=== PATIENT | female | born 1985 | race Caucasian/White ===

== ENCOUNTER 2017-07-24 01:49 | Emergency (ER) | payer OTHER ==
[~2017-07-24] VITALS: Ht 180.3 cm; Wt 93.9 kg
[~2017-07-24 01:49] MED LIST: IPRAT-ALBUT 0.5-3 ML INH; NEXIUM20 MG PO; ZYRTEC10 M3 PO
[2017-07-24] MEDS ORDERED: SINGULAIR10 MG PO (02:03)
[2017-07-24] MEDS ORDERED: CIPRO500 MG PO (02:04)
[2017-07-24] MEDS ORDERED: OMEPRAZOLE20 MG PO (02:04)
[2017-07-24] MEDS ORDERED: METOPROLOL TART25 MG PO (05:24)
--- NOTE | 2017-07-25 07:17 | EKG ---
[facility] [address] [facility] [place] [address] Signed Sinus tachycardia Nonspecific ST abnormality Abnormal ECG No previous ECGs available Confirmed by ANABEL DOWD MD ([id number] on 07/25/2017 7:16:56 AM Electronically Signed By: ANABEL DOWD MD 07/25/17 0717 PATIENT NAME: MARISA MANNING Electrocardiogram DATE OF : 83 PHYSICIAN: ANABEL DOWD MD REPORT #: [id number] REPORT IS CONFIDENTIAL AND NOT TO BE RELEASED WITHOUT AUTHORIZATION
== END 2017-07-24 05:41 | disposition home or self-care (01) ==
LOC: ED 01:49
DX: R00.0 Tachycardia, unspecified (principal); J45.909 Unspecified asthma, uncomplicated; Z88.2 Allergy status to sulfonamides; Z88.8 Allergy status to other drugs, medicaments and biological substances; Z79.899 Other long term (current) drug therapy; Z79.2 Long term (current) use of antibiotics
CPT/HCPCS: 80053; 84443; 84484; 84703; 85025; 85379; 93005; 93010; 96374; 96375; 99284; J2060; J7030

== ENCOUNTER 2018-01-25 12:59 | Emergency (ER) | payer OTHER ==
[~2018-01-25] VITALS: Ht 180.3 cm; Wt 93.9 kg
[~2018-01-25 12:59] MED LIST changes: +CIPRO500 MG PO; +METOPROLOL TART25 MG PO; +OMEPRAZOLE20 MG PO; +SINGULAIR10 MG PO
== END 2018-01-25 13:41 | disposition home or self-care (01) ==
LOC: ED 12:59
DX: H69.90 Unspecified Eustachian tube disorder, unspecified ear (principal); H92.03 Otalgia, bilateral; J45.909 Unspecified asthma, uncomplicated; Z88.2 Allergy status to sulfonamides; Z88.8 Allergy status to other drugs, medicaments and biological substances; Z79.899 Other long term (current) drug therapy
CPT/HCPCS: 99282

== ENCOUNTER 2019-03-21 10:30 | Emergency (ER) | payer OTHER ==
[~2019-03-21] VITALS: Ht 180.3 cm; Wt 99.8 kg
[~2019-03-21 10:30] MED LIST changes: +PROMETHAZINE HC25 M1
[2019-03-21] MEDS ORDERED: PHENTERMINE HCL15 MG PO (10:44)
[2019-03-21] MEDS ORDERED: ONDANSETRON ODT8 MG PO (13:29)
== END 2019-03-21 13:52 | disposition home or self-care (01) ==
LOC: ED 10:30
DX: K29.00 Acute gastritis without bleeding (principal); J45.909 Unspecified asthma, uncomplicated; Z88.1 Allergy status to other antibiotic agents; Z88.2 Allergy status to sulfonamides; Z79.899 Other long term (current) drug therapy
CPT/HCPCS: 80053; 83690; 85025; 96361; 96374; 99284-25; J2405; J7030

== ENCOUNTER 2019-08-07 19:06 | Emergency (ER) | payer BC, OTHER ==
[~2019-08-07] VITALS: Ht 180.3 cm; Wt 93.0 kg
[~2019-08-07 19:06] MED LIST changes: +LEVAQUIN500 MG PO; +MONTELUKAST SOD10 MG PO; +ONDANSETRON ODT8 MG PO; +PHENTERMINE HCL15 MG PO; +PREDNISONE20 MG PO; +VENTOLIN HFA18 GM INH
[2019-08-07] MEDS ORDERED: CIPRO500 MG PO (20:15)
== END 2019-08-07 20:30 | disposition home or self-care (01) ==
LOC: ED 19:06
DX: N39.0 Urinary tract infection, site not specified (principal); J45.909 Unspecified asthma, uncomplicated; Z88.1 Allergy status to other antibiotic agents; Z88.2 Allergy status to sulfonamides; Z79.899 Other long term (current) drug therapy
CPT/HCPCS: 81001; 84703; 99283

== ENCOUNTER 2019-08-16 13:51 | Emergency (ER) | payer BC, OTHER ==
[~2019-08-16] VITALS: Ht 180.3 cm; Wt 105.8 kg
--- OUTSIDE RECORDS SUMMARY | 2019-08-16 13:54 | XMS ---
PreManage Notification: MARISA MANNING Security Contract Coordinator Events No recent Security Events currently on file CRITERIA MET - [facility] - 2 Visits in 30 Days CARE PROVIDERS Olivia Ireland PA-C Treatment Current PHONE: Unknown Timur Arellano Primary Care Current PHONE: [phone] Krystal has no Care Guidelines for this patient. Luis VISIT COUNT (12 MO.) [address] [place] [address] TOTAL 5 NOTE: Visits indicate total known visits. ED/UCC VISIT TRACKING (12 MO.) 08/16/2019 13:53 [facility] TYPE: Emergency COMPLAINT: - BLACKED OUTCALOS,RT FACIAL NUMBNESS 08/07/2019 19:06 [facility] TYPE: Emergency COMPLAINT: - URINE PROBLEM DIAGNOSES: - Dysuria - Allergy status to other antibiotic agents status - Unspecified asthma, uncomplicated - Allergy status to sulfonamides status - Other longterm (current) drug therapy - Urinary tract infection, site not specified 07/04/2019 21:51 [facility] TYPE: Emergency COMPLAINT: - SOB, TIGHT CHEST DIAGNOSES: - Allergy status to other antibiotic agents status - Unspecified asthma, uncomplicated - Allergy status to sulfonamides status - Shortness of breath - Other buttermaker helper (current) drug therapy 03/21/2019 10:31 [facility] TYPE: Emergency COMPLAINT: - VOMITING. DIAGNOSES: - Vomiting, unspecified - Other longterm (current) drug therapy - Allergy status to other antibiotic agents status - Unspecified asthma, uncomplicated - Allergy status to sulfonamides status - Acute gastritis without bleeding 12/18/2018 00:00 [facility] TYPE: Emergency COMPLAINT: - EAR PAIN AND SWELLING INPATIENT VISIT TRACKING (12 MO.) No inpatient visits to display in this time frame [email or web address]
[2019-08-16] MEDS ORDERED: K-TAB ER20 MEQ PO (15:53)
--- NOTE | 2019-08-16 20:00 | EKG ---
[facility] [address] [facility] [place] [address] Signed Normal sinus rhythm Normal ECG When compared with ECG of 18-MAY-2018 00:37, No significant change was found Confirmed by FELICITAS GRANADOS MD ([id number]) on 08/16/2019 8:00:35 PM Electronically Signed By: FELICITAS GRANADOS MD 08/16/191999 PATIENT NAME: MARISA MANNING Electrocardiogram DATE OF : 83 PHYSICIAN: FELICITAS GRANADOS MD REPORT #: [id number] REPORT IS CONFIDENTIAL AND NOT TO BE RELEASED WITHOUT AUTHORIZATION
== END 2019-08-16 16:39 | disposition home or self-care (01) ==
LOC: ED 13:51
DX: E87.6 Hypokalemia (principal); E86.0 Dehydration; Z88.1 Allergy status to other antibiotic agents; Z88.2 Allergy status to sulfonamides; Z79.899 Other long term (current) drug therapy
CPT/HCPCS: 80053; 83735; 84484; 84703; 85025; 93005; 93010; 96360; 99284-25; J7030

== ENCOUNTER 2019-10-06 11:21 | Emergency (ER) | payer BC, OTHER ==
[~2019-10-06] VITALS: Ht 180.3 cm; Wt 105.7 kg
[~2019-10-06 11:21] MED LIST changes: +K-TAB ER20 MEQ PO
[2019-10-06] MEDS ORDERED: ALBUTEROL2.5 MG/3 M INH (11:34)
[2019-10-06] MEDS ORDERED: BUSPIRONE HCL5 MG PO (11:35)
[2019-10-06] MEDS ORDERED: VALACYCLOVIR1000 MG PO (11:35)
[2019-10-06] MEDS ORDERED: SINGULAIR10 MG PO (11:36)
[2019-10-06] MEDS ORDERED: IPRAT-ALBUT 0.5-3 ML INH (11:38)
[2019-10-06] MEDS ORDERED: PREDNISONE20 MG PO (11:42)
== END 2019-10-06 11:45 | disposition home or self-care (01) ==
LOC: ED 11:21
DX: J45.901 Unspecified asthma with (acute) exacerbation (principal); Z87.440 Personal history of urinary (tract) infections; Z90.89 Acquired absence of other organs; Z88.2 Allergy status to sulfonamides; Z88.1 Allergy status to other antibiotic agents; Z79.899 Other long term (current) drug therapy
CPT/HCPCS: 99284

== ENCOUNTER 2020-07-04 22:11 | Emergency (ER) | payer BC, OTHER ==
[~2020-07-04] VITALS: Ht 180.3 cm; Wt 108.9 kg
[~2020-07-04 22:11] MED LIST changes: +ALBUTEROL2.5 MG/3 M INH; +BUSPIRONE HCL5 MG PO; +VALACYCLOVIR1000 MG PO
[2020-07-04] MEDS ORDERED: NYSTATIN100000 UN1 PO (22:24)
== END 2020-07-04 23:39 | disposition home or self-care (01) ==
LOC: ED 22:11
DX: R09.89 Other specified symptoms and signs involving the circulatory and respiratory systems (principal); J45.909 Unspecified asthma, uncomplicated; Z88.2 Allergy status to sulfonamides; Z88.1 Allergy status to other antibiotic agents; Z79.899 Other long term (current) drug therapy
CPT/HCPCS: 99283

== ENCOUNTER 2024-12-29 07:00 | Day surgery (SDC) | payer BC, OTHER ==
[2024-12-22 09:56] VITALS: BP 110/66
[~2024-12-29] VITALS: Ht 180.3 cm; Wt 78.6 kg
[~2024-12-29 07:00] MED LIST changes: +ALL DAY ALLERGY10 MG PO; +IBLOOD GLUCOSE TEST STRIP 1 EA TEST VI PRN; +LACTATED RINGER'S 1,000 ML IV SCH; +LIDOCAINE HCL 1% 5 ML SDV INJ ONE; +NYSTATIN100000 UN1 PO
[2024-12-29 07:12] VITALS: BP 112/62
--- NOTE | 2024-12-29 09:21 | NUR ---
HAS BEEN IN TO TALK WITH PT. UP TO BR. RETURNED TO STRETCHER AND SCDS ON. PT HAS PERMANET WRIST BRACELETS AND ANKLE BRACLETS ON. PER BRICK DROPPER IN O R TO INSTRUCT PT MAY CAUSE KC SWELLING OF EXTREMITIES OR MAY HAVE TO BE CUT OFF. PT STATES OK.
[2024-12-29] MEDS ORDERED: fentaNYL citrate 100 MCG/2 ML VIAL ONE (09:31)
[2024-12-29] MEDS ORDERED: propofoL 200 MG/20 ML VIAL ONE ×2 (09:31→09:34)
[2024-12-29] MEDS ORDERED: LIDOCAINE HCL 2% 5 ML SDV ONE (09:31)
[2024-12-29] MEDS ORDERED: ondansetron HCL 4 MG/2 ML VIAL ONE (09:31)
[2024-12-29] MEDS ORDERED: ACETAMINOPHEN 1,000 MG/100 ML VIAL ONE (09:31)
[2024-12-29] MEDS ORDERED: DEXAMETHASONE SOD PHOS 4 MG/ML VIAL ONE (09:33)
[2024-12-29] MEDS ORDERED: KETOROLAC TROMETHAMINE 30 MG/ML VIAL ONE (09:33)
[2024-12-29] MEDS ORDERED: LIDOCAINE 1% W/ EPI 1:100,000 20 ML MDV ONE (09:45)
[2024-12-29] MEDS ORDERED: MIDAZOLAM HCL 2 MG/2 ML VIAL IV PRN (10:00)
[2024-12-29] MEDS ORDERED: NALOXONE HCL 0.4 MG SYR IV PRN ×2 (10:00→10:30)
[2024-12-29] MEDS ORDERED: PROCHLORPERAZINE EDISYLATE 10 MG/2 ML VIAL IV PRN (10:00)
[2024-12-29] MEDS ORDERED: fentaNYL citrate 50 MCG/ML SDV IV PRN (10:00)
[2024-12-29] MEDS ORDERED: droPERidol 5 MG/2 ML VIAL IV PRN (10:00)
[2024-12-29] MEDS ORDERED: ondansetron HCL 4 MG/2 ML VIAL IV PRN (10:00)
[2024-12-29] MEDS ORDERED: HYDROmorphone HCL 1 MG/ML SYR IV PRN (10:00)
[2024-12-29] MEDS ORDERED: IBLOOD GLUCOSE TEST STRIP 1 EA TEST VI PRN (10:00)
[2024-12-29] MEDS ORDERED: SIMETHICONE 80 MG CHEW PO PRN (10:30)
[2024-12-29] MEDS ORDERED: FAMOTIDINE 20 MG/ 2 ML VIAL IV PRN (10:30)
[2024-12-29] MEDS ORDERED: HYDROCODONE/ACETA 5/325 TAB PO PRN (10:30)
[2024-12-29] MEDS ORDERED: FAMOTIDINE 20 MG TAB PO PRN (10:30)
--- NOTE | 2024-12-29 10:37 | NUR ---
12/29/24 Agatha Jaime HOB IS ELEVATED. ICED WATER IS GIVEN. PATIENT IS SITTING UP, DRINKING AND TOLERATING THAT WELL.
[2024-12-29 10:53] VITALS: BP 106/60
[2024-12-29] MEDS ORDERED: SIMETHICONE 80 MG CHEW PO SCH (13:00)
[2024-12-29] MEDS ORDERED: IBUPROFEN 800 MG TAB PO SCH (14:00)
== END 2024-12-29 10:59 | disposition home or self-care (01) ==
LOC: DS 07:00
PROVIDERS: ATTEND Obstetrics & Gynecology
PROC: 0U5B8ZZ Destruction of Endometrium, Via Natural or Artificial Opening Endoscopic (ICD-10-PCS; principal; 2024-12-29 09:00)
DX: N92.1 Excessive and frequent menstruation with irregular cycle (principal); N30.10 Interstitial cystitis (chronic) without hematuria; J45.909 Unspecified asthma, uncomplicated; Z88.8 Allergy status to other drugs, medicaments and biological substances; Z88.2 Allergy status to sulfonamides; Z79.899 Other long term (current) drug therapy
CPT/HCPCS: 00952; J0131; J1100; J1885; J2003; J2405; J2704; J3010; J7121

== ENCOUNTER 2025-02-07 19:15 | Emergency (ER) | payer BC, OTHER ==
[~2025-02-07] VITALS: Ht 180.3 cm; Wt 78.6 kg
[~2025-02-07 19:15] MED LIST changes: -IBLOOD GLUCOSE TEST STRIP 1 EA TEST VI PRN; -LACTATED RINGER'S 1,000 ML IV SCH; -LIDOCAINE HCL 1% 5 ML SDV INJ ONE
[2025-02-07 19:29] LABS: BASOPHILS 0.5 % (0.1-1.2); EOSINOPHILS 1.8 % (0.7-5.8); LYMPHOCYTES 34.6 % (19.3-51.7); MCH 30.5 PG (25.6-32.2); MCHC 33.0 g/dL (32.2-35.5); MCV 92.4 fL (79.4-94.8); MONOCYTES 6.4 % (4.7-12.5); NEUTROPHILS 56.5 % (34.0-71.1); RBC 4.23 M/uL (3.93-5.22)
[2025-02-07] MEDS ORDERED: SUCRALFATE 1 GM TAB PO ONE (19:30)
[2025-02-07] MEDS ORDERED: LIDOCAINE & ANTACID 35 ML BTL PO ONE (19:30)
[2025-02-07] MEDS ORDERED: PANTOPRAZOLE SODIUM 40 MG/10 ML VIAL IV ONE (19:30)
[2025-02-07] MEDS ORDERED: DEXAMETHASONE SOD PHOS 10 MG/ML VIAL IV ONE (19:30)
[2025-02-07 19:46] LABS: INR 1.05 (0.80-1.30); PROTIME 13.0 Sec (11.2-14.2)
[2025-02-07 19:47] LABS: ALT (SGPT) 25.0 U/L (14-59); AST (SGOT) 17.0 U/L (15-37); GLOMERULAR FILTRATION RATE,EST 89.0 mL/min (>60); PROTEIN, TOTAL 7.3 g/dL (6.4-8.2); UREA NITROGEN 15.0 mg/dL (7-18)
[2025-02-07] MEDS ORDERED: PROTONIX40 MG PO (20:56)
[2025-02-07] MEDS ORDERED: PREDNISONE20 MG PO (20:56)
[2025-02-07] MEDS ORDERED: CARAFATE1 GM PO (20:56)
[2025-02-07 21:19] VITALS: BP 121/82
--- NOTE | 2025-02-08 12:15 | EKG ---
[facility] [address] [facility] [place], [place] [address] Signed Normal sinus rhythm Normal ECG When compared with ECG of 16-AUG-2019 14:31, No significant change was found Confirmed by Khadijah Calixto MD ([id number]) on 02/08/2025 12:15:08 PM Electronically Signed By: KHADIJAH CALIXTO MD 02/08/25 1215 PATIENT NAME: MARISA MANNING Electrocardiogram DATE OF : 83 PHYSICIAN: KHADIJAH CALIXTO MD REPORT #: [id number] REPORT IS CONFIDENTIAL AND NOT TO BE RELEASED WITHOUT AUTHORIZATION
== END 2025-02-07 21:19 | disposition home or self-care (01) ==
LOC: ED 19:15
PROVIDERS: Family Medicine
DX: T78.07XA Anaphylactic reaction due to milk and dairy products, initial encounter (principal); R07.89 Other chest pain; Z88.8 Allergy status to other drugs, medicaments and biological substances; Z91.018 Allergy to other foods; Z79.899 Other long term (current) drug therapy; Z79.52 Long term (current) use of systemic steroids
CPT/HCPCS: 36415; 71045; 71260; 80053; 83735; 84484; 84703; 85025; 85379; 85610; 93005; 93010; J1100; J1200; J2470; Q9967